=== PATIENT | female | born 1955 | race Caucasian/White ===

== ENCOUNTER 2018-01-15 20:19 | Emergency (ER) | payer OTHER ==
[~2018-01-15] VITALS: Ht 152.4 cm; Wt 82.8 kg
[2018-01-15] MEDS ORDERED: ONDANSETRON ODT 4 MG ONE (20:43)
[2018-01-15] MEDS ORDERED: ONDANSETRON ODT 4 MG PO ONE (21:00)
[2018-01-15 21:28] LABS: CULTURE INDICATED? YES; MICROSCOPIC INDICATED
[2018-01-15 21:29] LABS: BASOPHILS # (AUTO) 0.02 x10^3/uL (0-0.1); BASOPHILS % (AUTO) 0 % (0-1); EOSINOPHILS # (AUTO) 0.37 x10^3/uL (0-0.4); EOSINOPHILS % (AUTO) 3 % (1-7); LYMPHOCYTES # (AUTO) 1.08 x10^3/uL (1-3.4); LYMPHOCYTES % (AUTO) 10 % (22-44); MD NO; MEAN CORPUSCULAR HEMOGLOBIN 31.8 pg (27.0-34.8); MEAN CORPUSCULAR HGB CONC 33.9 g/dL (32.4-35.8); MEAN CORPUSCULAR VOLUME 93.8 fL (80-100); MEAN PLATELET VOLUME 9.4 fL (7.4-10.4); MONOCYTES # (AUTO) 0.54 x10^3/uL (0.2-0.8); MONOCYTES % (AUTO) 5 % (2-9); NEUTROPHILS # (AUTO) 8.91 x10^3/uL (1.8-6.8); NEUTROPHILS % (AUTO) 82 % (42-75); PLATELET COUNT 269 x10^3/uL (130-400); RED BLOOD COUNT 4.39 x10^6/uL (3.82-5.3); RED CELL DISTRIBUTION WIDTH 13.5 % (9.6-15.2)
[2018-01-15] MEDS ORDERED: METO25TA35 PO (21:34)
[2018-01-15] MEDS ORDERED: CARI350T14 PO (21:34)
[2018-01-15] MEDS ORDERED: MOME17SP NS (21:34)
[2018-01-15] MEDS ORDERED: SIMV40TA3 PO (21:34)
[2018-01-15] MEDS ORDERED: BUDE10.22 INH (21:34)
[2018-01-15] MEDS ORDERED: LISI-170 PO (21:34)
[2018-01-15] MEDS ORDERED: FLUO20TA25 PO (21:34)
[2018-01-15] MEDS ORDERED: SUMA100T4 PO (21:34)
[2018-01-15 21:38] LABS: ALANINE AMINOTRANSFERASE 25 U/L (12-78); ALBUMIN 3.7 g/dL (3.4-5.0); ANION GAP 7 mmol/L (5-15); CALCIUM 9.3 mg/dL (8.5-10.1); CHLORIDE 108 mmol/L (98-107); CREATININE 0.93 mg/dL (0.55-1.02)
[2018-01-15 21:40] LABS: ALKALINE PHOSPHATASE 108 U/L (45-117); TOTAL PROTEIN 7.1 g/dL (6.4-8.2)
[2018-01-15 22:40] VITALS: BP 116/66
[2018-01-15 23:32] LABS: CLOSTRIDIUM DIFFICILE ANTIGEN NEGATIVE; CLOSTRIDIUM DIFFICILE TOXIN NEGATIVE (Negative)
== END 2018-01-16 00:13 | disposition home or self-care (01) ==
LOC: ED 23:59
DX: A09 Infectious gastroenteritis and colitis, unspecified (principal); I10 Essential (primary) hypertension; E78.5 Hyperlipidemia, unspecified; G43.909 Migraine, unspecified, not intractable, without status migrainosus; J32.9 Chronic sinusitis, unspecified; Z88.5 Allergy status to narcotic agent
CPT/HCPCS: 36415; 74021; 80053; 81001; 83690; 85025; 87086; 87324; 89055; 99285; Q0162